=== PATIENT | male | born 1970 | race Hispanic/Latino ===

== ENCOUNTER 2017-07-26 21:35 | Inpatient (IN) | payer BC, OTHER ==
[~2017-07-26] VITALS: Ht 177.8 cm; Wt 73.7 kg
[~2017-07-26 21:35] MED LIST: CARAL PO; METO-391 PO; MULT-40 PO; PANT40TA PO; RIVA20TA PO
[2017-07-26] MEDS ORDERED: LIDOCAINE HCL 2% VISCOUS 15 ML UDCUP ONE (22:05)
[2017-07-26] MEDS ORDERED: ACETAMINOPHEN 325 MG TAB ONE (22:05)
[2017-07-26] MEDS ORDERED: MAG HYDROX/AL HYDROX/SIMETH ES 30 ML SUSP UDCUP ONE (22:05)
[2017-07-26 22:11] LABS: BASOPHILS % (AUTO) 0.7 % (0.0-5.0); EOSINOPHILS % (AUTO) 1.3 % (0.0-8.0); HEMATOCRIT 41.6 % (42-54); LYMPHOCYTES % (AUTO) 25.3 % (21.0-51.0); MEAN CORPUSCULAR HEMOGLOBIN 29.2 pg (27.0-33.0); MEAN CORPUSCULAR HGB CONC 34.4 g/dL (32.0-36.0); MEAN CORPUSCULAR VOLUME 84.7 fL (79-99); MONOCYTES % (AUTO) 8.7 % (3.0-13.0); PLATELET COUNT (AUTO) 265 K/uL (130-400); RED BLOOD CELL COUNT(AUTO) 4.91 MIL/uL (4.50-6.20); RED CELL DISTRIBUTION WIDTH 13.2 % (11.0-15.5); WHITE BLOOD COUNT (AUTO) 9.7 K/uL (4.8-10.8)
[2017-07-26 22:13] LABS: APPEARANCE,URINE Clear (CLEAR); BILIRUBIN,URINE Negative (NEGATIVE); COLOR,URINE Dark Yellow (YELLOW); GLUCOSE, URINE (UA) Negative (NEGATIVE); KETONES,URINE Negative (NEGATIVE); LEUKOCYTE ESTERASE ,URINE Negative (NEGATIVE); NITRATE,URINE Negative (NEGATIVE); OCCULT BLOOD,URINE Negative (NEGATIVE); PROTEIN,URINE Negative (NEGATIVE); UROBILINOGEN,URINE 0.2 mg/dL (0.2-1.0)
[2017-07-26 22:20] LABS: CREATININE 1.3 mg/dL (0.5-1.5); POTASSIUM 3.8 mmol/L (3.5-5.1)
[2017-07-26 22:25] LABS: ALBUMIN 3.8 g/dL (3.5-5.0); BILIRUBIN,TOTAL 0.7 mg/dL (0.2-1.0); TOTAL PROTEIN, SERUM 7.5 g/dL (6.0-8.3)
[2017-07-26] MEDS ORDERED: ACETAMINOPHEN-CODEINE ELIXIR 5 ML UDCUP ONE (23:09)
[2017-07-26] MEDS ORDERED: IOPAMIDOL-370 75 ML VIAL IV ONE (23:09)
[2017-07-26] MEDS ORDERED: SODIUM CHLORIDE 0.9% 1000ML 1,000 ML IV ONE (23:36)
[2017-07-27] MEDS ORDERED: MEROPENEM 1 GM VIAL ONE (01:36)
[2017-07-27] MEDS ORDERED: METRONIDAZOLE 500MG/100ML BAG 100 ML ONE (05:46)
[2017-07-27] MEDS ORDERED: MORPHINE SULFATE 4 MG/1ML SYG ONE (05:47)
[2017-07-27] MEDS ORDERED: LEVOFLOXACIN 500 MG/D5W 100 ML 100 ML ONE (07:27)
[2017-07-27] MEDS ORDERED: POTASSIUM CHLORIDE 10% ELIXIR 20 MEQ/15 ML UDCUP PO PRN ×2 (07:45→08:15)
[2017-07-27] MEDS ORDERED: LACTULOSE 20 GM/30 ML UDCUP PO PRN (07:45)
[2017-07-27] MEDS ORDERED: ACETAMINOPHEN 325 MG TAB PO PRN ×2 (07:45)
[2017-07-27] MEDS ORDERED: POTASSIUM CHLORIDE 20MEQ/100ML 100 ML IV PRN ×2 (07:45→08:15)
[2017-07-27] MEDS ORDERED: DiphenhydrAMINE HCL 50 MG/ML VIAL IV PRN (07:45)
[2017-07-27] MEDS ORDERED: DIPHENHYDRAMINE HCL 25 MG CAPSULE PO PRN (07:45)
[2017-07-27] MEDS ORDERED: MAG HYDROX/AL HYDROX/SIMETH ES 30 ML SUSP UDCUP PO PRN (07:45)
[2017-07-27] MEDS ORDERED: POTASSIUM CHLORIDE 20 MEQ ERTAB PO PRN ×2 (07:45→08:15)
[2017-07-27] MEDS ORDERED: LIDOCAINE HCL-MPF 1% 2ML VIAL IVP PRN ×2 (07:45→08:15)
[2017-07-27] MEDS ORDERED: MORPHINE SULFATE 2 MG/ML 1ML SYG IVP PRN (08:00)
[2017-07-27] MEDS ORDERED: ONDANSETRON HCL MDV 20ML 2 MG/ML VIAL IVP PRN (08:00)
[2017-07-27] MEDS ORDERED: MORPHINE SULFATE 4 MG/1ML SYG IV PRN (08:00)
[2017-07-27] MEDS: FAMOTIDINE/PF 20 MG/2 ML VIAL IV SCH (09:00)
[2017-07-27] MEDS ORDERED: METOPROLOL TARTRATE 1 MG/ML 5ML VIAL IV SCH ×2 (09:00)
[2017-07-27 09:25] VITALS: BP 112/71
[2017-07-27 09:45] LABS: INR 1.02 (0.85-1.15); PARTIAL THROMBOPLASTIN TIME 27.8 SEC (26.3-35.5); PROTHROMBIN TIME 10.7 SEC (9.6-11.6)
[2017-07-27] MEDS ORDERED: MAGNESIUM CITRATE 296 ML SOLUTION PO SCH (11:15)
[2017-07-27 11:49] VITALS: BP 109/63
[2017-07-27] MEDS: METRONIDAZOLE 500MG/100ML BAG 100 ML IV SCH ×2 (15:00→22:19)
[2017-07-27 16:40] VITALS: BP 102/66
[2017-07-27] MEDS: SODIUM CHLORIDE 0.9% 1000ML 1,000 ML IV SCH ×2 (18:00→21:25)
[2017-07-27] MEDS: TRAMADOL HCL 50 MG TABLET PO PRN (18:21)
[2017-07-27 19:05] VITALS: BP 113/63
[2017-07-27 19:10] VITALS: BP 158/55
[2017-07-27 23:40] VITALS: BP 107/57
[2017-07-28] VITALS (19 sets, daily range): BP systolic 96–134; BP diastolic 43–87
[2017-07-28] MEDS: SODIUM CHLORIDE 0.9% 1000ML 1,000 ML IV SCH (04:00)
[2017-07-28 05:03] LABS: HEMATOCRIT 40.5 % (42-54); MEAN CORPUSCULAR HEMOGLOBIN 29.1 pg (27.0-33.0); MEAN CORPUSCULAR HGB CONC 34.2 g/dL (32.0-36.0); NUCLEATED RED BLOOD CELLS 0.1 % (0.0-0.19); PLATELET COUNT (AUTO) 240 K/uL (130-400); RED BLOOD CELL COUNT(AUTO) 4.76 MIL/uL (4.50-6.20); RED CELL DISTRIBUTION WIDTH 13.2 % (11.0-15.5); WHITE BLOOD COUNT (AUTO) 9.4 K/uL (4.8-10.8)
[2017-07-28 05:09] LABS: CREATININE 1.2 mg/dL (0.5-1.5); POTASSIUM 4.3 mmol/L (3.5-5.1)
[2017-07-28] MEDS: METRONIDAZOLE 500MG/100ML BAG 100 ML IV SCH ×2 (06:16→13:45)
[2017-07-28] MEDS ORDERED: LIDOCAINE PF 2% 5ML ABBOJECT ONE (07:45)
[2017-07-28] MEDS ORDERED: GLYCOPYRROLATE 0.2 MG/ML 5 ML VIAL ONE (07:45)
[2017-07-28] MEDS ORDERED: SUCCINYLCHOLINE 200MG/10ML SYR ONE ×2 (07:45→08:58)
[2017-07-28] MEDS ORDERED: DEXAMETHASONE SOD PHOSPHATE 10MG/ML 1ML VIAL ONE (07:45)
[2017-07-28] MEDS ORDERED: PROPOFOL 10 MG/ML 20ML VIAL IV ONE (07:46)
[2017-07-28] MEDS ORDERED: MIDAZOLAM HCL 1 MG/ML 2ML VIAL ONE (07:46)
[2017-07-28] MEDS ORDERED: FENTANYL CITRATE PF 50 MCG/1 ML 2ML VIAL ONE ×2 (07:46→08:37)
[2017-07-28] MEDS: LEVOFLOXACIN 500 MG/D5W 100 ML 100 ML IV SCH ×2 (08:00→08:30)
[2017-07-28] MEDS ORDERED: LIDOCAINE HCL 1% 20 ML VIAL ONE (08:37)
[2017-07-28] MEDS ORDERED: BUPIVACAINE/EPI/PF 0.25% 30ML VIAL IJ ONE (08:37)
[2017-07-28] MEDS ORDERED: ROCURONIUM BROMIDE 10MG/1ML 5ML VL ONE (08:58)
[2017-07-28] MEDS ORDERED: NEOSTIGMINE METHYLSULFATE 1MG/ML IV ONE (08:59)
[2017-07-28] MEDS ORDERED: LIDOCAINE HCL 4% LTA SOL 4 ML VIAL ONE (08:59)
[2017-07-28] MEDS: FAMOTIDINE/PF 20 MG/2 ML VIAL IV SCH (09:00)
[2017-07-28] MEDS: TRAMADOL HCL 50 MG TABLET PO PRN (10:44)
[2017-07-28] MEDS ORDERED: LEVO500T2 PO (14:52)
[2017-07-28] MEDS ORDERED: TRAM1TAB PO (14:52)
[2017-07-28] MEDS ORDERED: PROM25 PO (14:52)
[2017-07-28] MEDS ORDERED: MELO-108 PO (14:52)
== END 2017-07-28 18:21 | disposition home or self-care (01) | DRG 343 ==
LOC: EDH 21:35 → EDHIP 07-27 05:32 → 4AH 07-27 08:58
PROVIDERS: ADMIT Internal Medicine; ATTEND Internal Medicine
PROC: 0DTJ4ZZ Resection of Appendix, Percutaneous Endoscopic Approach (ICD-10-PCS; principal; 2017-07-27)
DX: K35.80 Unspecified acute appendicitis (principal); I48.91 Unspecified atrial fibrillation; K59.00 Constipation, unspecified; Z82.49 Family history of ischemic heart disease and other diseases of the circulatory system; Z82.5 Family history of asthma and other chronic lower respiratory diseases; Z28.21 Immunization not carried out because of patient refusal
CPT/HCPCS: 36415; 74177; 80048; 80053; 81003; 85025; 85027; 85610; 85730; 88304; A4344; J0330; J1100; J1956; J2001; J2185; J2250; J2270; J2704; J2710; J3010; J3490; J7030; Q9967

== ENCOUNTER → 2025-01-19 | Outpatient (CLI) | payer OTHER ==
[~2025-01-19] MED LIST changes: -CARAL PO; +LEVO500T2 PO; +MELO-108 PO; -METO-391 PO; -MULT-40 PO; -PANT40TA PO; +PROM25 PO; -RIVA20TA PO; +TRAM1TAB2 PO
--- NOTE | 2025-01-20 09:55 | HMCIMG ---
EXAM: CT Cardiac calcium scoring. CLINICAL HISTORY: Screening. TECHNIQUE: Thin collimated axial CT cardiac images were obtained. A CT scan is done according to ALARA (As Low As Reasonably Achievable). CONTRAST: None. COMPARISON: None provided. FINDINGS: Calcium Score: VESSEL Number of lesions Volume mm3 Equi. Mass/mg Calcium score LM 0 0.0 - 0.0 LAD 5 38.8 - 68.3 LCX 0 0.0 - 0.0 RCA 0 0.0 - 0.0 Total 5 38.8 - 68.3 IMPRESSION: The total calcium score is 68.3. 77th percentile. /[place]
== END | disposition home or self-care (01) ==
LOC: RAH 14:15
PROVIDERS: ATTEND Internal Medicine Cardiovascular Disease
DX: Z13.6 Encounter for screening for cardiovascular disorders (principal)
CPT/HCPCS: 75571